=== PATIENT | female | born 1995 | race Two or more races ===

== ENCOUNTER 2021-03-07 16:28 | Emergency (ER) | payer OTHER ==
[~2021-03-07] VITALS: Ht 167.6 cm; Wt 81.6 kg
== END 2021-03-07 18:38 | disposition home or self-care (01) ==
LOC: ER 16:28
DX: O26.891 Other specified pregnancy related conditions, first trimester (principal); R10.2 Pelvic and perineal pain; Z3A.01 Less than 8 weeks gestation of pregnancy